=== PATIENT | male | born 1995 | race African-American/Black ===

== ENCOUNTER 2025-04-06 08:43 | Inpatient (IN) | payer OTHER, MEDICAID ==
[~2025-04-06] VITALS: Ht 170.2 cm; Wt 102.1 kg
[2025-04-06 08:45] VITALS: O2SAT 99
[2025-04-06] MEDS: LEVETIRACETAM 1000MG PREMIX 100 ML IV ONE (09:17)
[2025-04-06 09:32] LABS: BASOPHILS % 0.8 % (0.0-2.0); EOSINOPHILS % 0.7 % (0.0-5.0); HEMATOCRIT. 38.6 % (42.0-52.0); HEMOGLOBIN. 12.6 g/dL (14.0-18.0); LYMPHOCYTES % 27.8 % (20.0-50.0); MEAN PLATELET VOLUME 8.4 fl (7.4-10.4); MONOCYTES % 6.7 % (2.0-8.0); NEUTROPHILS % 64.0 % (40.0-76.0); PLATELET 239 x1000/uL (130-400); RED BLOOD CELL COUNT 4.58 mill/uL (4.7-6.1); RED CELL DISTRIBUTION WIDTH 13.3 % (11.6-14.6)
[2025-04-06 09:43] LABS: CREATININE 1.0 mg/dL (0.6-1.3); UREA NITROGEN BLOOD 8 mg/dL (9-23)
[2025-04-06 09:44] LABS: ETHANOL BLOOD < 10 mg/dL (<10)
[2025-04-06] MEDS: LORAZEPAM 2MG/ML UD SYRINGE IV SCH ×2 (09:45→10:32)
[2025-04-06] MEDS: SODIUM CHLORIDE 0.9% 1,000 ML IV ONE ×2 (12:04→13:28)
[2025-04-06] MEDS ORDERED: IPRATROPIUM/ALBUTEROL 0.5-3(2.5)MG/3ML NEB HHN PRN (14:30)
[2025-04-06] MEDS ORDERED: CLONIDINE 0.1MG TABLET PO PRN (14:30)
[2025-04-06] MEDS ORDERED: GUAIFENESIN 200MG/10ML SUGAR FREE UDC PO PRN (14:30)
[2025-04-06] MEDS ORDERED: ACETAMINOPHEN 325MG TABLET PO PRN (14:30)
[2025-04-06] MEDS ORDERED: ONDANSETRON HCL 4MG/2ML INJ IV PRN (14:30)
[2025-04-06] MEDS ORDERED: DOCUSATE SODIUM 100MG CAPSULE PO PRN (14:30)
[2025-04-06] MEDS ORDERED: DIPHENHYDRAMINE 50MG/ML VIAL IV PRN (14:30)
[2025-04-06] MEDS: DEXT 5%/0.45% NACL 1000ML 1,000 ML IV SCH (15:13)
[2025-04-06 16:00] VITALS: BP 114/70; PULSE 56; RESP 18; TEMP 36.7; O2SAT 100
[2025-04-06 16:00] LABS: CLARITY URINE CLEAR (CLEAR); COLOR URINE YELLOW (YELLOW); GLUCOSE URINE NEGATIVE (NEGATIVE); KETONES URINE NEGATIVE (NEGATIVE); LEUKOCYTE ESTERASE URINE NEGATIVE (NEGATIVE); NITRITE URINE NEGATIVE (NEGATIVE); OCCULT BLOOD URINE NEGATIVE (NEGATIVE); PH URINE 6.5 (4.5-8.0); PROTEIN URINE NEGATIVE (NEGATIVE); SPECIFIC GRAVITY URINE 1.018 (1.005-1.030); UROBILINOGEN URINE 1.0 E.U./dL (0.2-1.0)
[2025-04-06 16:10] LABS: *AMPHETAMINES SCREEN URINE NEGATIVE (NEGATIVE); *BENZODIAZEPINES SCREEN URINE NEGATIVE (NEGATIVE)
[2025-04-06 16:11] LABS: *BARBITURATES SCREEN URINE NEGATIVE (NEGATIVE); *COCAINE SCREEN URINE NEGATIVE (NEGATIVE); CANNABINOID URINE SCREEN NEGATIVE (NEGATIVE); ECSTASY MDMA SCREEN URINE NEGATIVE (NEGATIVE); METHADONE URINE SCREEN NEGATIVE (NEGATIVE); OPIATES URINE SCREEN NEGATIVE (NEGATIVE); PHENCYCLIDINE URINE SCREEN NEGATIVE (NEGATIVE)
[2025-04-06] MEDS: LEVETIRACETAM 500MG PREMIX 100 ML IV SCH (17:35)
[2025-04-06] MEDS: PANTOPRAZOLE SODIUM 40 MG/VIAL IV SCH (17:35)
[2025-04-06] MEDS ORDERED: LORAZEPAM 2MG/ML UD SYRINGE IV PRN (18:30)
[2025-04-06 18:45] VITALS: BP 114/70; PULSE 56; RESP 18; TEMP 36.8072
[2025-04-06 20:00] VITALS: BP 101/50; PULSE 55; RESP 18; TEMP 36.6; O2SAT 100
[2025-04-07] VITALS: BP 103/42; PULSE 64; RESP 18; TEMP 36.5; O2SAT 98
[2025-04-07 00:43] LABS: CREATININE 0.7 mg/dL (0.6-1.3); LACTATE DEHYDROGENASE 130 IU/L (120-246)
[2025-04-07 00:44] LABS: PHOSPHORUS 3.9 mg/dL (2.5-4.9); UREA NITROGEN BLOOD 6 mg/dL (9-23)
[2025-04-07 04:00] VITALS: BP 97/42; PULSE 56; RESP 18; TEMP 36.7; O2SAT 100
[2025-04-07 08:00] VITALS: BP 99/52; PULSE 54; RESP 16; TEMP 36.4; O2SAT 100
[2025-04-07] MEDS: ACETAMINOPHEN 325MG TABLET PO PRN (09:06)
[2025-04-07 10:24] LABS: TROPONIN I HIGH SENSITIVITY 8 ng/L (3.0-53)
[2025-04-07 10:27] LABS: T4 FREE 1.22 ng/dL (0.89-1.76)
[2025-04-07 10:42] LABS: BASOPHILS % 0.5 % (0.0-2.0); EOSINOPHILS % 1.1 % (0.0-5.0); HEMATOCRIT. 40.2 % (42.0-52.0); HEMOGLOBIN. 13.2 g/dL (14.0-18.0); LYMPHOCYTES % 30.2 % (20.0-50.0); MEAN PLATELET VOLUME 8.5 fl (7.4-10.4); MONOCYTES % 6.7 % (2.0-8.0); NEUTROPHILS % 61.5 % (40.0-76.0); PLATELET 223 x1000/uL (130-400); RED BLOOD CELL COUNT 4.76 mill/uL (4.7-6.1); RED CELL DISTRIBUTION WIDTH 13.5 % (11.6-14.6)
[2025-04-07 11:07] LABS: CREATININE 0.8 mg/dL (0.6-1.3); TRIGLYCERIDE 55 mg/dL (0-150); UREA NITROGEN BLOOD 6 mg/dL (9-23)
[2025-04-07 11:08] LABS: LDL CHOLESTEROL 110 mg/dL (5-100); PROTEIN TOTAL 7.1 g/dL (6.0-8.3)
[2025-04-07 11:09] LABS: ASPARTATE AMINOTRANSFERASE 20 IU/L (<34); BILIRUBIN DIRECT 0.2 mg/dL (<=3.0); BILIRUBIN TOTAL 0.7 mg/dL (0.1-1.0); PHOSPHORUS 3.1 mg/dL (2.5-4.9)
[2025-04-07 12:00] VITALS: BP 104/62; PULSE 56; RESP 16; TEMP 36.4; O2SAT 99
== END 2025-04-07 14:00 | disposition left against medical advice (07) | DRG 100 ==
LOC: ER 08:43 → EDBEDREQ 12:11 → 5WST 13:28 → EDBEDREQTM 13:29 → EDBEDREQ 13:29 → ENRESERV 14:58
PROVIDERS: ADMIT Internal Medicine; ATTEND Internal Medicine
DX: R56.9 Unspecified convulsions (principal); G93.41 Metabolic encephalopathy; F06.1 Catatonic disorder due to known physiological condition; F10.939 Alcohol use, unspecified with withdrawal, unspecified; F17.290 Nicotine dependence, other tobacco product, uncomplicated; F13.929 Sedative, hypnotic or anxiolytic use, unspecified with intoxication, unspecified; Z53.29 Procedure and treatment not carried out because of patient's decision for other reasons; Y90.0 Blood alcohol level of less than 20 mg/100 ml; Z79.899 Other long term (current) drug therapy
CPT/HCPCS: 36415; 71045; 80048; 80061; 80076; 80165; 80305; 80320; 81003; 82140; 82550; 83036; 83615; 83735; 84100; 84439; 84443; 84481; 84484; 85025; 93005; 96365; 96375; 99291; A4615; J1953; J2060; J2470; J7030; G0480